=== PATIENT | male | born 2000 | race Hispanic/Latino ===

== ENCOUNTER 2022-11-26 13:02 | Emergency (ER) | payer SELFPAY ==
[~2022-11-26] VITALS: Ht 170.2 cm; Wt 78.7 kg
[2022-11-26 15:22] VITALS: BP 135/91
[2022-11-26 15:53] LABS: EOS% 2.6 % (0-8); HEMATOCRIT 47.2 % (39.0-50.0); HEMOGLOBIN 15.9 g/dl (14.0-18.0); LYMPH% 40.2 % (15-41); MEAN CELL VOLUME 88.7 fL CALC (80.0-100.0); MEAN CORPUSCULAR HGB 29.9 pG CALC (26.0-32.0); MEAN CORPUSCULAR HGB CONC 33.7 g/dL CAL (32.0-36.0); MONO% 6.8 % (2-13); NEUT# 2.89 thou/uL (1.82-7.42); NEUT% 49.4 % (42-76); RED BLOOD COUNT 5.32 mill/uL (4.70-6.10); RED CELL DISTRI WIDTH 11.9 % (11.5-15.5)
[2022-11-26 16:00] VITALS: BP 105/83
[2022-11-26 16:04] LABS: ALKALINE PHOSPHATASE 77 u/l (38-126); ANION GAP 13 (6-22 (CALC)); BILIRUBIN, TOTAL 0.4 mg/dL (0.2-1.3); BUN 18 mg/dL (9-20); BUN/CREATININE RATIO 20 (12-20 (CALC)); CARBON DIOXIDE 29 mmol/l (22-30); CHLORIDE 103 mmol/l (95-108); CREATININE 0.9 mg/dL (0.7-1.3); GFR FOR AFR.AMER. > 60 ML/MIN (>=60 (CALC)); GFR OTHER RACES > 60 ML/MIN (>=60 (CALC)); POTASSIUM 4.3 mmol/l (3.5-5.1); SGOT/AST 38 u/l (17-59); SODIUM 140 mmol/l (137-146)
== END 2022-11-26 18:35 | disposition left against medical advice (07) | DRG 392 ==
LOC: ED 13:02
PROVIDERS: Family Medicine
DX: R10.9 Unspecified abdominal pain (principal); R19.7 Diarrhea, unspecified